=== PATIENT | female | born 1985 | race Caucasian/White ===

== ENCOUNTER 2023-04-24 17:20 | Emergency (ER) | payer SELFPAY ==
[2023-04-24] MEDS ORDERED: Proparacaine 0.5% Ophth Soln 15 ML Bottle EYEBOTH ONE (18:34)
[2023-04-24] MEDS ORDERED: Fluorescein 1 MG Ophth Strip EYERT ONE (18:34)
[2023-04-24] MEDS ORDERED: Erythromycin Base 0.5% Ophth Oint 1 GM Tube EYELF ONE (18:42)
[2023-04-24] MEDS ORDERED: Ketorolac 0.5% Ophth Soln 5 ML Bottle EYELF ONE (18:43)
== END 2023-04-24 19:25 | disposition home or self-care (01) ==
LOC: JD.ED 17:20
DX: S05.02XA Injury of conjunctiva and corneal abrasion without foreign body, left eye, initial encounter (principal); F17.210 Nicotine dependence, cigarettes, uncomplicated; W20.8XXA Other cause of strike by thrown, projected or falling object, initial encounter
CPT/HCPCS: 99282; A9270; J3490

== ENCOUNTER 2023-08-13 04:25 | Inpatient (IN) | payer MEDICAID ==
[2023-08-13] MEDS ORDERED: Nalbuphine HCl 10 MG/ 1ML Amp IVPUSH PRN (04:45)
[2023-08-13] MEDS ORDERED: Lactated Ringers 1,000 ML IV SCH (04:45)
[2023-08-13] MEDS ORDERED: Sodium Chloride 0.9% 10 ML Syringe FLUSH PRN (04:45)
[2023-08-13] MEDS ORDERED: Lidocaine 1% 50 ML MDV INJECT PRN (04:45)
[2023-08-13] MEDS ORDERED: Ondansetron 4 MG/2 ML SDV IVPUSH PRN (04:45)
[2023-08-13] MEDS: Oxytocin/Lactated Ringers 30 UNIT/500 ML BAG IV SCH (05:00)
[2023-08-13] MEDS: fentaNYL 100 MCG/2 ML SDV IVPUSH ONE (05:07)
[2023-08-13 05:35] LABS: BASOPHILS ABSOLUTE AUTO 0.1 K/mm3 (0.0-0.2); BASOPHILS PERCENT AUTO 0.5 % (0.0-1.0); EOSINOPHILS ABSOLUTE AUTO 0.1 K/mm3 (0.0-0.4); EOSINOPHILS PERCENT AUTO 1.1 % (0.0-6.0); HEMATOCRIT 30.8 % (37.0-47.0); HEMOGLOBIN 9.6 gm/dl (12.0-16.0); IMMATURE GRAN ABSOLUTE AUTO 0.09 K/mm3 (0.00-0.05); IMMATURE GRAN PERCENT AUTO 0.9 % (0.0-0.4); LYMPHOCYTES ABSOLUTE AUTO 3.1 K/mm3 (1.0-4.8); LYMPHOCYTES PERCENT AUTO 29.7 % (24.0-44.0); MEAN CORPUSCULAR HEMOGLOBIN 23.9 pg (28.0-32.0); MEAN CORPUSCULAR HGB CONC 31.2 g/dl (32.0-36.0); MEAN CORPUSCULAR VOLUME 76.8 fl (83.0-99.0); MEAN PLATELET VOLUME 11.8 fl (9.4-12.3); MONOCYTES ABSOLUTE AUTO 0.6 K/mm3 (0.0-0.8); MONOCYTES PERCENT AUTO 6.1 % (0.0-8.0); NEUTROPHILS ABSOLUTE AUTO 6.5 K/mm3 (1.8-7.7); NEUTROPHILS PERCENT AUTO 61.7 % (41.0-71.0); PLATELET COUNT,PLT 217 K/mm3 (150-400); RED BLOOD CELL COUNT 4.01 M/mm3 (4.10-5.30); WHITE BLOOD CELL COUNT,WBC 10.56 K/mm3 (3.9-11.3)
[2023-08-13] MEDS ORDERED: Witch Hazel Medicated Pads 40/Jar TOP PRN (07:04)
[2023-08-13] MEDS ORDERED: Acetaminophen 325 MG Tab PO PRN (07:04)
[2023-08-13] MEDS ORDERED: Benzocaine/Menthol 20%-0.5% Spray 78 GM Cannister TOP PRN (07:04)
[2023-08-13] MEDS: fentaNYL 100 MCG/2 ML SDV ONE (07:52)
[2023-08-13] MEDS: Ibuprofen 600 MG Tab PO PRN (14:21)
[2023-08-13] MEDS: Nicotine 21 MG/24 Hr Patch TRDERM SCH (20:46)
[2023-08-13 21:28] LABS: BARBITURATE SCREEN,URINE NEGATIVE (CUTOFF=200); BENZODIAZEPINES SCREEN,URINE NEGATIVE (CUTOFF=150); BUPRENORPHINE SCREEN,URINE NEGATIVE (CUTOFF=10); METHADONE SCREEN, URINE NEGATIVE (CUTOFF=200); METHAMPHETAMINES SCREEN, URINE PRESUMPTIVE POSITIVE (CUTOFF=500); OXYCODONE SCREEN,URINE NEGATIVE (CUT0FF=100); THC SCREEN,URINE 20 NG/ML NEGATIVE (CUTOFF=50)
[2023-08-13 21:39] LABS: AMPHETAMINES SCREEN, URINE PRESUMPTIVE POSITIVE (CUTOFF=500)
[2023-08-14] MEDS: Nicotine 21 MG/24 Hr Patch TRDERM SCH (20:40)
== END 2023-08-15 13:20 | disposition home or self-care (01) | DRG 807 ==
LOC: JD.OBCHECK 04:25 → JD.OB 04:34 → JD.OBCHECK 04:44 → JD.OB 04:45 → OBSVTOIN 05:00 → JD.OB 05:01
PROVIDERS: ADMIT Obstetrics & Gynecology; ATTEND Obstetrics & Gynecology
PROC: 10E0XZZ Delivery of Products of Conception, External Approach (ICD-10-PCS; principal; 2023-08-13)
PROC: 10907ZC Drainage of Amniotic Fluid, Therapeutic from Products of Conception, Via Natural or Artificial Opening (ICD-10-PCS; 2023-08-13)
PROC: 3E033VJ Introduction of Other Hormone into Peripheral Vein, Percutaneous Approach (ICD-10-PCS; 2023-08-13)
DX: O99.324 Drug use complicating childbirth (principal); Z37.0 Single live birth; O77.0 Labor and delivery complicated by meconium in amniotic fluid; Z3A.38 38 weeks gestation of pregnancy
CPT/HCPCS: 36415; 59025; 59409; 80306; 85025; 86592; 86850; 86900; 86901; A9270-GY; J3010; J7999